=== PATIENT | female | born 1965 | race Caucasian/White ===

== ENCOUNTER 2017-01-26 15:55 | Emergency (ER) | payer MEDICAID ==
[2017-01-26] MEDS ORDERED: IPRATROPIUM/ALBUTEROL 3 ML DEYVIAL IH ONE (17:26)
[2017-01-26 17:31] LABS: % IMMATURE GRANULYOCYTES 0.3 % (0.0-1.1); ABSOLUTE IMMATURE GRANULOCYTES 0.04 10^3/uL (0.00-0.10); ADD DIFF? NO; ADD MORPH? NO; ADD SCAN? NO; ATYPICAL LYMPHOCYTE FLAG 0 (0-99); FRAGMENT RBC FLAG 0 (0-99); HEMATOCRIT 45.4 % (38.0-47.0); HEMOGLOBIN 14.8 g/dL (12.6-16.3); LEFT SHIFT FLG 0 (0-99); LIPEMIA HEMOLYSIS FLAG 80 (0-99); MEAN CELL HEMOGLOBIN 27.4 pg (27.9-34.1); MEAN CELL HEMOGLOBIN CONCENTR. 32.6 g/dL (32.4-36.7); MEAN CELL VOLUME 83.9 fL (81.5-99.8); MEAN PLATELET VOLUME 9.5 fL (8.7-11.7); PLATELET CLUMPS FLAG 0 (0-99); PLATELET COUNT 405 10^3/uL (150-400); RED BLOOD CELL COUNT 5.41 10^6/uL (4.18-5.33); RED CELL DISTRIBUTION WIDTH 14.4 % (11.5-15.2)
[2017-01-26 17:44] LABS: ANION GAP 15 mEq/L (8-16); CALCIUM 10.5 mg/dL (8.5-10.4); CARBON DIOXIDE 23 mEq/l (22-31); CHLORIDE 103 mEq/L (97-110); CREATININE 0.8 mg/dL (0.6-1.0); GLOMERULAR FILTRATION RATE > 60; GLUCOSE 81 mg/dL (70-100); POTASSIUM 4.4 mEq/L (3.5-5.2); SODIUM 141 mEq/L (134-144)
[2017-01-26 17:55] LABS: TROPONIN I < 0.012 ng/mL (0-0.034)
[2017-01-26] MEDS ORDERED: KETOROLAC 15 MG/1 ML SDV IVP ONE (18:21)
[2017-01-26] MEDS ORDERED: IOPAMIDOL (ISOVUE 370) 100 ML BTL IV ONE (18:27)
[2017-01-26 19:19] VITALS: PULSE 63; O2SAT 96
--- NOTE | 2017-01-26 19:34 | CPEKG ---
Heart Rate: 64 RR Interval: 938 P-R Interval: 160 QRSD Interval: 92 QT Interval: 464 QTC Interval: 479 P [place]: 77 QRS [place]: 61 T Wave [place]: 56 EKG Severity - NORMAL ECG - EKG Impression: SINUS RHYTHM Electronically Signed By: Beulah Isaac 27-Jan-2017 00:27:10
--- NOTE | 2017-01-26 19:52 | EDPHY ---
H & P Stated Complaint: SOB, mid sternal chest burning with respiration - Personal History LMP (Females 10-55): Post Menopausal Current Tetanus/Diphtheria Vaccine: No Current Tetanus Diphtheria and Acellular Pertussis (TDAP): No - Medical/Surgical History Hx Asthma: Yes Hx Chronic Respiratory Disease: No Hx Diabetes: No Hx Cardiac Disease: No Hx Renal Disease: No Hx Cirrhosis: No Hx Alcoholism: No Hx HIV/AIDS: No Hx Splenectomy or Spleen Trauma: No Other PMH: uterine ablation, hydronitis superventiva, benzo withdrawal, migraines, PE, lung abscess, pneumonia, asthma - Social History Smoking Status: Former smoker HPI/ROS: Chief complaint: Difficulty breathing History of present illness: This is a 51-year-old female who presents to the emergency department for evaluation of difficulty breathing. Patient reports she has had symptoms for the last week. Symptoms are intermittent in nature. She denies any specific precipitating factors. She states when she does become short of breath it becomes worse when she takes a deep breath. She has had associated cough, she is not sure if she has seen blood in it. She has also had occasional diffuse chest discomfort. This started after the difficulty breathing. Again she denies precipitating factors. She denies any alleviating factors for either the shortness of breath or chest discomfort. Other than deep breathing she denies any aggravating factors including it is not exertional. She has not had any fevers or cold symptoms. She did injure her leg earlier in the week and reports she had an outpatient ultrasound done which was negative for a DVT. Review of systems: A 10 point review of systems was obtained and other than described above was negative (Lyndon Santizo) - Physical Exam Exam: General Appearance: Alert, nontoxic. Eyes: Pupils equal and round no pallor or injection. ENT, Mouth: Mucous membranes moist. Respiratory: There are no retractions, lungs are clear to auscultation. Cardiovascular: Regular rate and rhythm. No evidence of DVT. Gastrointestinal: Abdomen is soft and nontender, no masses, bowel sounds normal. Neurological: Alert and oriented x4. Strength and sensation intact and symmetrical. Skin: Warm and dry, no rashes. Musculoskeletal: Neck is supple nontender. Extremities are symmetrical, full range of motion. Psychiatric: Patient is oriented X 3, there is no agitation. (Lyndon Santizo) Constitutional: Initial Vital Signs Temperature (C) 37.1 C 07/13/17 16:02 Heart Rate 79 01/26/17 16:02 Respiratory Rate 18 01/26/17 16:02 Blood Pressure 157/94 H 01/26/17 16:02 O2 Sat (%) 97 01/26/17 16:02 O2 Delivery Mode Room Air Allergies/Adverse Reactions: clarithromycin [From Biaxin] Allergy (Verified 01/26/17 16:01) erythromycin base Allergy (Verified 01/26/17 16:01) ibuprofen Allergy (Verified 01/26/17 16:01) steroids Allergy (Uncoded 01/26/17 16:01) Home Medications: Medication Instructions Recorded Albuterol 01/26/17 Ambien 01/26/17 Toradol 01/26/17 Medical Decision Making - Diagnostics EKG Interpretation: 12 lead EKG is interpreted in Trace master View by emergency department physician. No acute ischemic changes. (Beulah Isaac) ED Course/Re-evaluation: Patient is discussed with my secondary supervising physician Dr. Beulah Isaac. Patient presents to the emergency department with difficulty breathing and subsequent development of chest discomfort. On presentation she is nontoxic. Afebrile and vital signs are stable. Blood studies are unremarkable. EKG is unremarkable. She does have a remote history of PE, CTA is pursued and negative for acute findings. My suspicion for serious pathology is low. She does report a history of reactive airway disease, she was given a nebulizer and states she was feeling better after using the nebulizer. She had a mild headache while she was here, she requested Toradol, this was given and she felt better. At this time I do not appreciate significant underlying pathology requiring further emergency department intervention or inpatient management. She will be discharged home. She asked to continue her home albuterol. She is to follow up with her primary care doctor on Monday for recheck, she has arranged an appointment already. Strict return precautions are given. Patient voiced understanding and agreement with plan. (Lyndon Santizo) The patient was evaluated and managed by the physician assistant manager quality management. I have reviewed this chart and I agree with the findings and plan of care as documented , as indicated by my signature. I am the secondary supervising physician. ( Beulah Isaac) Differential Diagnosis: Included but not limited to reactive airway disease, pulmonary infections, pulmonary embolism, reflux, cardiac dysrhythmia, ACS, pneumothorax (Lyndon Santizo) - Data Points Laboratory Results: Laboratory Results 01/26/17 16:42 01/26/17 16:42 Medications Given: Discontinued Medications Albuterol/Ipratropium (Duoneb) 3 ml IH EDNOW ONE Stop: 01/26/17 17:27 Last Admin: 01/26/17 18:00 Dose: 3 ml Ketorolac Tromethamine (Toradol) 15 mg IVP EDNOW ONE Stop: 01/26/17 18:22 Last Admin: 01/26/17 18:37 Dose: 15 mg Departure - Departure Disposition: Home, Routine, Self-Care Clinical Impression: Chest pain Dyspnea Qualifiers: Dyspnea type: unspecified Qualified Code(s): R06.00 - Dyspnea, unspecified Condition: Good Instructions: Dyspnea (ED) Additional Instructions: Follow-up with your primary care doctor on Monday as arranged without fail Use your inhaler every 4-6 hours as discussed If symptoms worsen or new symptoms develop return to the emergency room for recheck Referrals: Garcia Antonio DO [Primary Care Provider] - As per Instructions
[2017-01-26 20:17] VITALS: BP 142/88; RESP 18; TEMP 98.2
== END 2017-01-26 20:17 | disposition home or self-care (01) ==
DX: R06.00 Dyspnea, unspecified (principal); R07.9 Chest pain, unspecified; J45.909 Unspecified asthma, uncomplicated; Z87.891 Personal history of nicotine dependence
CPT/HCPCS: 96374; J1885; Q9967